=== PATIENT | male | born 1990 | race Caucasian/White ===

== ENCOUNTER 2016-10-21 18:05 | Emergency (ER) | payer MEDICAID ==
[~2016-10-21 18:05] MED LIST: ABILIFY30 M1 PO; BACTRIM DS TAB1 EAC2 PO; CYCLOBENZAPRINE10 M1 PO; DEPAKOTE ER500 M1 PO; DOK100 M2 PO; FLUOXETINE HCL40 M1 PO; LAMICTAL25 M2 PO; LAMOTRIGINE150 M1 PO; MELATONIN3 M4 PO; MUPIROCIN22 G2 TP; OMEPRAZOLE20 M3 PO; PREDNISONE20 M1 PO; PROAIR HFA8.5 GM; SIMVASTATIN40 M1 PO; TRIAMCINOLONE A15 G1 EXT; VISTARIL50 M1 PO; [UNRECOGNIZED DRUG - OTHER]
[2016-10-21] MEDS ORDERED: ELIMITE60 G2 TP (18:27)
[2016-10-21] MEDS ORDERED: PREDNISONE20 M1 PO (18:27)
[2016-10-24] MEDS ORDERED: CLONAZEPAM1 M2 PO (19:08)
[2016-10-24] MEDS ORDERED: HYDROXYZINE HCL50 M1 PO (19:10)
[2017-02-10] MEDS ORDERED: HYDROCODON-ACE1 EA16 PO (02:27)
[2017-02-10] MEDS ORDERED: LOTRIMIN AF12 GM TP (02:35)
[2017-02-14] MEDS ORDERED: TYLENOL WITH C1 EACH PO (04:57)
[2017-03-01] MEDS ORDERED: KEFLEX500 M4 PO (14:49)
[2017-03-01] MEDS ORDERED: LOTRIMIN AF12 GM (14:50)
[2017-03-01] MEDS ORDERED: ZITHROMAX TRI-500 M1 PO (14:51)
[2017-03-01] MEDS ORDERED: ATHLETE'S FOO35.4 GM TOP (15:13)
== END 2016-10-21 19:09 ==
LOC: EDMED 18:05
DX: R21 Rash and other nonspecific skin eruption (principal)

== ENCOUNTER 2016-10-24 19:40 | Emergency (ER) | payer MEDICAID ==
[~2016-10-24 19:40] MED LIST changes: +CLONAZEPAM1 M2 PO; +ELIMITE60 G2 TP; +HYDROXYZINE HCL50 M1 PO
[2017-02-10] MEDS ORDERED: HYDROCODON-ACE1 EA16 PO (02:27)
[2017-02-10] MEDS ORDERED: LOTRIMIN AF12 GM TP (02:35)
[2017-02-14] MEDS ORDERED: TYLENOL WITH C1 EACH PO (04:57)
[2017-03-01] MEDS ORDERED: KEFLEX500 M4 PO (14:49)
[2017-03-01] MEDS ORDERED: LOTRIMIN AF12 GM (14:50)
[2017-03-01] MEDS ORDERED: ZITHROMAX TRI-500 M1 PO (14:51)
[2017-03-01] MEDS ORDERED: ATHLETE'S FOO35.4 GM TOP (15:13)
== END 2016-10-24 20:23 ==
LOC: EDMED 19:40
PROC: 2W3QX1Z Immobilization of Right Lower Leg using Splint (ICD-10-PCS; principal; 2016-10-24)
DX: S93.401A Sprain of unspecified ligament of right ankle, initial encounter (principal); W10.9XXA Fall (on) (from) unspecified stairs and steps, initial encounter; Y92.019 Unspecified place in single-family (private) house as the place of occurrence of the external cause

== ENCOUNTER 2016-12-07 15:53 | Emergency (ER) | payer MEDICAID ==
[2016-12-07] MEDS ORDERED: ZITHROMAX250 M1 PO (16:19)
[2016-12-08] MEDS ORDERED: ARISTADA882 MG/3.2 SC (16:48)
[2016-12-08] MEDS ORDERED: ROBITUSSIN LON118 M1 PO (19:10)
[2017-02-10] MEDS ORDERED: HYDROCODON-ACE1 EA16 PO (02:27)
[2017-02-10] MEDS ORDERED: LOTRIMIN AF12 GM TP (02:35)
[2017-02-14] MEDS ORDERED: TYLENOL WITH C1 EACH PO (04:57)
[2017-03-01] MEDS ORDERED: KEFLEX500 M4 PO (14:49)
[2017-03-01] MEDS ORDERED: LOTRIMIN AF12 GM (14:50)
[2017-03-01] MEDS ORDERED: ZITHROMAX TRI-500 M1 PO (14:51)
[2017-03-01] MEDS ORDERED: ATHLETE'S FOO35.4 GM TOP (15:13)
== END 2016-12-07 16:42 ==
LOC: EDMED 15:53
DX: H66.91 Otitis media, unspecified, right ear (principal)

== ENCOUNTER 2016-12-08 16:18 | Emergency (ER) | payer MEDICAID ==
[~2016-12-08 16:18] MED LIST changes: +ZITHROMAX250 M1 PO
[2016-12-08] MEDS ORDERED: ARISTADA882 MG/3.2 SC (16:48)
[2016-12-08 17:43] LABS: BASO % 0.5 % (0-2); EOS % 4.3 % (0-7); EOSINOPHIL ABSOLUTE COUNT 0.3 tho/cmm (0.0-0.7); HCT-HEMATOCRIT 42.7 % (36.0-53.5); IMMATURE GRANULOCYTES ABSOLUTE 0.02 tho/cmm (0-0.03); IMMATURE GRANULOCYTES PERCENT 0.3 % (0-0.3); LYMPH % 40.3 % (20-45); LYMPH ABSOLUTE COUNT 3.1 tho/cmm (0.8-4.5); MCH (MEAN CORPUSCULAR HGB) 25.9 pg (28.0-32.0); MCHC MEAN CORPUSCULAR HGB CONC 32.8 % (32.0-36.0); MCV (MEAN CELL VOLUME) 78.9 fl (82.0-96.0); MEAN PLATELET VOLUME 10.5 cmc (9.4-12.4); MONOCYTE ABSOLUTE COUNT 0.6 tho/cmm (0.0-1.2); NEUTROPHIL ABSOLUTE COUNT 3.6 tho/cmm (1.6-8.0); NEUTROPHIL-AUTOMATED 3.6 tho/cmm (1.6-8.0); NEUTROPHILS % 46.6 % (40-80); PLATELET COUNT 297 tho/cmm (150-450); RED BLOOD COUNT 5.41 mil/cmm (4.40-5.70); RED CELL DISTRIBUTION WIDTH 14.5 % (12.4-16.4); WHITE BLOOD COUNT 7.8 tho/cmm (4.0-10.0)
[2016-12-08 18:01] LABS: BLOOD UREA NITROGEN 15 mg/dl (6-24); CALCIUM 8.4 mg/dl (8.5-10.5); CARBON DIOXIDE-VENOUS 24 mmol/L (22-32); CHLORIDE 106 mmol/l (96-110); CREATININE 0.57 mg/dl (0.60-1.30); GLUCOSE 145 mg/dL (70-110); SODIUM 140 mmol/L (135-145); eGFR VALUE FOR BLACK >90 mL/Min
[2016-12-08 18:02] LABS: ANION GAP 14 mmol/L (0-20)
[2016-12-08 18:03] LABS: POTASSIUM 4.1 mmol/L (3.7-5.1)
[2016-12-08] MEDS ORDERED: ROBITUSSIN LON118 M1 PO (19:10)
[2017-02-10] MEDS ORDERED: HYDROCODON-ACE1 EA16 PO (02:27)
[2017-02-10] MEDS ORDERED: LOTRIMIN AF12 GM TP (02:35)
[2017-02-14] MEDS ORDERED: TYLENOL WITH C1 EACH PO (04:57)
[2017-03-01] MEDS ORDERED: KEFLEX500 M4 PO (14:49)
[2017-03-01] MEDS ORDERED: LOTRIMIN AF12 GM (14:50)
[2017-03-01] MEDS ORDERED: ZITHROMAX TRI-500 M1 PO (14:51)
[2017-03-01] MEDS ORDERED: ATHLETE'S FOO35.4 GM TOP (15:13)
== END 2016-12-08 19:23 ==
LOC: EDMED 16:18
PROVIDERS: Emergency Medicine
DX: J06.9 Acute upper respiratory infection, unspecified (principal); R07.89 Other chest pain; I10 Essential (primary) hypertension; J45.909 Unspecified asthma, uncomplicated; G40.909 Epilepsy, unspecified, not intractable, without status epilepticus; Z79.899 Other long term (current) drug therapy
CPT/HCPCS: J2405

== ENCOUNTER 2016-12-15 11:32 | Emergency (ER) | payer MEDICAID ==
[~2016-12-15 11:32] MED LIST changes: +ARISTADA882 MG/3.2 SC; +ROBITUSSIN LON118 M1 PO
[2017-02-10] MEDS ORDERED: HYDROCODON-ACE1 EA16 PO (02:27)
[2017-02-10] MEDS ORDERED: LOTRIMIN AF12 GM TP (02:35)
[2017-02-14] MEDS ORDERED: TYLENOL WITH C1 EACH PO (04:57)
[2017-03-01] MEDS ORDERED: KEFLEX500 M4 PO (14:49)
[2017-03-01] MEDS ORDERED: LOTRIMIN AF12 GM (14:50)
[2017-03-01] MEDS ORDERED: ZITHROMAX TRI-500 M1 PO (14:51)
[2017-03-01] MEDS ORDERED: ATHLETE'S FOO35.4 GM TOP (15:13)
== END 2016-12-15 13:30 ==
LOC: EDMED 11:32
DX: G43.909 Migraine, unspecified, not intractable, without status migrainosus (principal); I10 Essential (primary) hypertension; K21.9 Gastro-esophageal reflux disease without esophagitis; E78.5 Hyperlipidemia, unspecified; Z88.0 Allergy status to penicillin; Z79.899 Other long term (current) drug therapy
CPT/HCPCS: J0780; J1200; J1885

== ENCOUNTER 2016-12-21 11:52 | Emergency (ER) | payer MEDICAID ==
[2016-12-21] MEDS ORDERED: NORCO 5-325 TA1 EACH PO (12:57)
[2017-02-10] MEDS ORDERED: HYDROCODON-ACE1 EA16 PO (02:27)
[2017-02-10] MEDS ORDERED: LOTRIMIN AF12 GM TP (02:35)
[2017-02-14] MEDS ORDERED: TYLENOL WITH C1 EACH PO (04:57)
[2017-03-01] MEDS ORDERED: KEFLEX500 M4 PO (14:49)
[2017-03-01] MEDS ORDERED: LOTRIMIN AF12 GM (14:50)
[2017-03-01] MEDS ORDERED: ZITHROMAX TRI-500 M1 PO (14:51)
[2017-03-01] MEDS ORDERED: ATHLETE'S FOO35.4 GM TOP (15:13)
== END 2016-12-21 13:20 ==
LOC: EDMED 11:52
PROC: 2W3QXYZ Immobilization of Right Lower Leg using Other Device (ICD-10-PCS; principal; 2016-12-21)
DX: M25.561 Pain in right knee (principal); E11.9 Type 2 diabetes mellitus without complications; J45.909 Unspecified asthma, uncomplicated; K21.9 Gastro-esophageal reflux disease without esophagitis; Z88.0 Allergy status to penicillin; Z88.8 Allergy status to other drugs, medicaments and biological substances; Z87.891 Personal history of nicotine dependence; Z79.899 Other long term (current) drug therapy

== ENCOUNTER 2016-12-24 11:41 | Emergency (ER) | payer MEDICAID ==
[~2016-12-24 11:41] MED LIST changes: +NORCO 5-325 TA1 EACH PO
[2017-02-10] MEDS ORDERED: HYDROCODON-ACE1 EA16 PO (02:27)
[2017-02-10] MEDS ORDERED: LOTRIMIN AF12 GM TP (02:35)
[2017-02-14] MEDS ORDERED: TYLENOL WITH C1 EACH PO (04:57)
[2017-03-01] MEDS ORDERED: KEFLEX500 M4 PO (14:49)
[2017-03-01] MEDS ORDERED: LOTRIMIN AF12 GM (14:50)
[2017-03-01] MEDS ORDERED: ZITHROMAX TRI-500 M1 PO (14:51)
[2017-03-01] MEDS ORDERED: ATHLETE'S FOO35.4 GM TOP (15:13)
== END 2016-12-24 16:08 ==
LOC: EDMED 11:41
DX: R51 Headache (principal); Z76.5 Malingerer [conscious simulation]; W22.01XA Walked into wall, initial encounter

== ENCOUNTER 2017-01-16 16:30 | Emergency (ER) | payer MEDICAID ==
[2017-02-10] MEDS ORDERED: HYDROCODON-ACE1 EA16 PO (02:27)
[2017-02-10] MEDS ORDERED: LOTRIMIN AF12 GM TP (02:35)
[2017-02-14] MEDS ORDERED: TYLENOL WITH C1 EACH PO (04:57)
[2017-03-01] MEDS ORDERED: KEFLEX500 M4 PO (14:49)
[2017-03-01] MEDS ORDERED: LOTRIMIN AF12 GM (14:50)
[2017-03-01] MEDS ORDERED: ZITHROMAX TRI-500 M1 PO (14:51)
[2017-03-01] MEDS ORDERED: ATHLETE'S FOO35.4 GM TOP (15:13)
== END 2017-01-16 17:25 | disposition left against medical advice (07) ==
LOC: EDMED 16:30
DX: L03.039 Cellulitis of unspecified toe (principal); Z53.29 Procedure and treatment not carried out because of patient's decision for other reasons

== ENCOUNTER 2017-01-21 18:09 | Emergency (ER) | payer MEDICAID ==
[2017-01-21] MEDS ORDERED: KLONOPIN1 M1 PO (18:35)
[2017-02-10] MEDS ORDERED: HYDROCODON-ACE1 EA16 PO (02:27)
[2017-02-10] MEDS ORDERED: LOTRIMIN AF12 GM TP (02:35)
[2017-02-14] MEDS ORDERED: TYLENOL WITH C1 EACH PO (04:57)
[2017-03-01] MEDS ORDERED: KEFLEX500 M4 PO (14:49)
[2017-03-01] MEDS ORDERED: LOTRIMIN AF12 GM (14:50)
[2017-03-01] MEDS ORDERED: ZITHROMAX TRI-500 M1 PO (14:51)
[2017-03-01] MEDS ORDERED: ATHLETE'S FOO35.4 GM TOP (15:13)
== END 2017-01-21 20:34 ==
LOC: EDMED 18:09
DX: M25.512 Pain in left shoulder (principal); E11.9 Type 2 diabetes mellitus without complications; I10 Essential (primary) hypertension; E78.5 Hyperlipidemia, unspecified; J45.909 Unspecified asthma, uncomplicated; R56.9 Unspecified convulsions; F17.200 Nicotine dependence, unspecified, uncomplicated; Y93.67 Activity, basketball; Y99.8 Other external cause status; Y92.830 Public park as the place of occurrence of the external cause

== ENCOUNTER 2017-01-22 14:05 | Emergency (ER) | payer MEDICAID ==
[~2017-01-22 14:05] MED LIST changes: +KLONOPIN1 M1 PO
[2017-02-10] MEDS ORDERED: HYDROCODON-ACE1 EA16 PO (02:27)
[2017-02-10] MEDS ORDERED: LOTRIMIN AF12 GM TP (02:35)
[2017-02-14] MEDS ORDERED: TYLENOL WITH C1 EACH PO (04:57)
[2017-03-01] MEDS ORDERED: KEFLEX500 M4 PO (14:49)
[2017-03-01] MEDS ORDERED: LOTRIMIN AF12 GM (14:50)
[2017-03-01] MEDS ORDERED: ZITHROMAX TRI-500 M1 PO (14:51)
[2017-03-01] MEDS ORDERED: ATHLETE'S FOO35.4 GM TOP (15:13)
== END 2017-01-22 15:25 ==
LOC: EDMED 14:05
DX: J02.9 Acute pharyngitis, unspecified (principal)
CPT/HCPCS: J1100

== ENCOUNTER 2017-01-22 19:54 | Emergency (ER) | payer MEDICAID ==
[2017-02-10] MEDS ORDERED: HYDROCODON-ACE1 EA16 PO (02:27)
[2017-02-10] MEDS ORDERED: LOTRIMIN AF12 GM TP (02:35)
[2017-02-14] MEDS ORDERED: TYLENOL WITH C1 EACH PO (04:57)
[2017-03-01] MEDS ORDERED: KEFLEX500 M4 PO (14:49)
[2017-03-01] MEDS ORDERED: LOTRIMIN AF12 GM (14:50)
[2017-03-01] MEDS ORDERED: ZITHROMAX TRI-500 M1 PO (14:51)
[2017-03-01] MEDS ORDERED: ATHLETE'S FOO35.4 GM TOP (15:13)
== END 2017-01-22 22:05 ==
LOC: EDMED 19:54
DX: M25.562 Pain in left knee (principal); F20.9 Schizophrenia, unspecified; W19.XXXA Unspecified fall, initial encounter

== ENCOUNTER 2017-01-25 11:51 | Emergency (ER) | payer MEDICAID ==
[2017-01-25 14:18] LABS: BASO % 0.3 % (0-2); EOS % 2.5 % (0-7); EOSINOPHIL ABSOLUTE COUNT 0.3 tho/cmm (0.0-0.7); HCT-HEMATOCRIT 41.1 % (36.0-53.5); HGB-HEMOGLOBIN 13.4 gm/dl (13.5-17.0); IMMATURE GRANULOCYTES ABSOLUTE 0.05 tho/cmm (0-0.03); IMMATURE GRANULOCYTES PERCENT 0.5 % (0-0.3); LYMPH % 29.8 % (20-45); LYMPH ABSOLUTE COUNT 3.3 tho/cmm (0.8-4.5); MCH (MEAN CORPUSCULAR HGB) 25.6 pg (28.0-32.0); MCHC MEAN CORPUSCULAR HGB CONC 32.6 % (32.0-36.0); MCV (MEAN CELL VOLUME) 78.4 fl (82.0-96.0); MEAN PLATELET VOLUME 9.9 cmc (9.4-12.4); MONO % 9.2 % (0-12); NEUTROPHIL ABSOLUTE COUNT 6.3 tho/cmm (1.6-8.0); NEUTROPHIL-AUTOMATED 6.3 tho/cmm (1.6-8.0); NEUTROPHILS % 57.7 % (40-80); PLATELET COUNT 297 tho/cmm (150-450); RED BLOOD COUNT 5.24 mil/cmm (4.40-5.70); RED CELL DISTRIBUTION WIDTH 14.4 % (12.4-16.4); WHITE BLOOD COUNT 10.9 tho/cmm (4.0-10.0)
[2017-01-25 14:30] LABS: ANION GAP 13 mmol/L (0-20); BLOOD UREA NITROGEN 18 mg/dl (6-24); CALCIUM 8.4 mg/dl (8.5-10.5); CARBON DIOXIDE-VENOUS 27 mmol/L (22-32); CHLORIDE 104 mmol/l (96-110); CREATININE 0.77 mg/dl (0.60-1.30); GLUCOSE 91 mg/dL (70-110); POTASSIUM 4.2 mmol/L (3.7-5.1); SODIUM 140 mmol/L (135-145); eGFR VALUE FOR BLACK >90 mL/Min
[2017-01-25] MEDS ORDERED: AMBIEN10 M1 PO (15:07)
[2017-01-25] MEDS ORDERED: PRINIVIL10 M1 PO (15:08)
[2017-01-25] MEDS ORDERED: PROVENTIL HFA6.7 G1 INH (15:08)
[2017-02-10] MEDS ORDERED: HYDROCODON-ACE1 EA16 PO (02:27)
[2017-02-10] MEDS ORDERED: LOTRIMIN AF12 GM TP (02:35)
[2017-02-14] MEDS ORDERED: TYLENOL WITH C1 EACH PO (04:57)
[2017-03-01] MEDS ORDERED: KEFLEX500 M4 PO (14:49)
[2017-03-01] MEDS ORDERED: LOTRIMIN AF12 GM (14:50)
[2017-03-01] MEDS ORDERED: ZITHROMAX TRI-500 M1 PO (14:51)
[2017-03-01] MEDS ORDERED: ATHLETE'S FOO35.4 GM TOP (15:13)
== END 2017-01-25 15:25 ==
LOC: EDMED 11:51
PROVIDERS: Emergency Medicine
DX: R19.7 Diarrhea, unspecified (principal); M79.1 Myalgia; F20.9 Schizophrenia, unspecified
CPT/HCPCS: J1885; J2405; J7030